=== PATIENT | male | born 1960 ===

== ENCOUNTER 2023-02-24 06:00 | Day surgery (SDC) | payer OTHER ==
[~2023-02-24 06:00] MED LIST: AMLODIPINE-OLM1 EACH PO; COZAAR100 MG PO; GLIPIZIDE XL10 MG PO; GLUMETZA500 MG PO; JARDIANCE10 MG PO; SYNTHROID88 MCG PO; TOPROL XL25 M1 PO; XARELTO20 MG PO; ZESTRIL40 M1 PO
== END 2023-02-24 12:40 | disposition home or self-care (01) ==
LOC: CIR.AMB 06:00
PROVIDERS: ATTEND Surgery Surgery of the Hand
DX: D21.12 Benign neoplasm of connective and other soft tissue of left upper limb, including shoulder (principal); Z88.1 Allergy status to other antibiotic agents; I10 Essential (primary) hypertension; E11.9 Type 2 diabetes mellitus without complications; Z87.891 Personal history of nicotine dependence; Z20.822 Contact with and (suspected) exposure to COVID-19